=== PATIENT | male | born 1970 | race Caucasian/White ===

== ENCOUNTER 2022-04-11 11:14 | Outpatient (CLI) | payer OTHER, SELFPAY ==
[2022-04-11 21:58] LABS: Alanine Aminotransferase* 261 U/L (4-50); Albumin* 5.5 g/dL (3.3-5.0); Alkaline Phosphatase* 77 U/L (40-150); Aspartate Amino Transferase* 157 U/L (12-35); Bilirubin Direct* 0.5 mg/dL (0.0-0.5); Bilirubin Total* 1.2 mg/dL (0.1-1.5); Cholesterol* 368 mg/dL (90-199); HDL Cholesterol* 48 mg/dL (>=40); LDL Cholesterol Calculated 288 mg/dL (<100); Total Protein* 9.2 g/dL (6.0-8.3); Triglycerides* 158 mg/dL (40-149)
[2022-04-11 22:17] LABS: PSA Screen* 0.66 ng/mL (0.10-4.00)
== END 2022-04-11 11:15 | disposition home or self-care (01) ==
PROVIDERS: PCP Family Medicine; Visit Provider Family Medicine
DX: Z00.00 Encounter for general adult medical examination without abnormal findings (principal); E78.5 Hyperlipidemia, unspecified; I10 Essential (primary) hypertension; Z12.5 Encounter for screening for malignant neoplasm of prostate
CPT/HCPCS: 80061; 80076; 84153

== ENCOUNTER 2022-04-29 09:36 | Outpatient (CLI) | payer OTHER, SELFPAY ==
--- NOTE | 2022-04-29 09:45 | CRLHL7_ITS ---
For Patients: As a result of the Century Cures Act, medical imaging exams and procedure reports are released immediately into your electronic medical record. You may view this report before your referring provider. If you have questions, please contact your health care provider. INDICATION: fatty liver COMPARISON: none TECHNIQUE: Real time elizabeth scale imaging and color Doppler analysis was performed of the right upper quadrant. FINDINGS: The patient`s liver is of normal size and has diffusely coarsened and increased echogenicity. Focal area of sparing is present adjacent to the gallbladder fossa measuring 1 cm. There is a normal appearance of the hepatic IVC and proximal abdominal aorta. There is no evidence of ascites. The gallbladder is of normal size and there is no evidence of intraluminal stones or sludge. The gallbladder wall measures 2 mm in thickness. The common bile duct is of normal size and measures 5 mm in diameter at the level of the le hepatis. The pancreas appears normal. There is no evidence of a stone or hydronephrosis within the right kidney. The right kidney measures 11.9 cm in length. IMPRESSION: Moderately severe diffuse hepatic steatosis. Dictated by Darrell Hamilton MD @ 04/29/2022 11:29:52 AM (Electronically Signed)
== END 2022-04-29 09:37 | disposition home or self-care (01) ==
LOC: US 09:37
PROVIDERS: PCP Family Medicine; Visit Provider Family Medicine
DX: K76.0 Fatty (change of) liver, not elsewhere classified (principal)
CPT/HCPCS: 76705

== ENCOUNTER 2022-05-22 13:00 | Outpatient (CLI) | payer OTHER, SELFPAY ==
[2022-05-22 22:02] LABS: Albumin* 5.3 g/dL (3.3-5.0)
[2022-05-22 22:04] LABS: Aspartate Amino Transferase* 132 U/L (12-35); Bilirubin Direct* 0.2 mg/dL (0.0-0.5); Total Protein* 8.5 g/dL (6.0-8.3)
[2022-05-22 22:05] LABS: Alanine Aminotransferase* 226 U/L (4-50); Alkaline Phosphatase* 70 U/L (40-150)
== END 2022-05-22 13:01 | disposition home or self-care (01) ==
LOC: LKVREF 13:00
PROVIDERS: PCP Family Medicine; Visit Provider Family Medicine
DX: R79.89 Other specified abnormal findings of blood chemistry (principal); E78.5 Hyperlipidemia, unspecified; I10 Essential (primary) hypertension
CPT/HCPCS: 80076

== ENCOUNTER 2022-08-08 11:24 | Outpatient (CLI) | payer OTHER, SELFPAY ==
[2022-08-08 22:03] LABS: Albumin* 4.9 g/dL (3.3-5.0)
[2022-08-08 22:06] LABS: Alanine Aminotransferase* 269 U/L (4-50); Alkaline Phosphatase* 72 U/L (40-150); Aspartate Amino Transferase* 172 U/L (12-35); Bilirubin Direct* 0.2 mg/dL (0.0-0.5); Total Protein* 8.4 g/dL (6.0-8.3)
== END 2022-08-08 11:25 | disposition home or self-care (01) ==
LOC: LKVREF 11:26
PROVIDERS: PCP Family Medicine; Visit Provider Family Medicine
DX: I10 Essential (primary) hypertension (principal); R79.89 Other specified abnormal findings of blood chemistry; E78.5 Hyperlipidemia, unspecified; F10.10 Alcohol abuse, uncomplicated
CPT/HCPCS: 80076

== ENCOUNTER 2022-09-07 12:34 | Outpatient (CLI) | payer OTHER, SELFPAY | END 2022-09-07 12:35 | disposition home or self-care (01) | LOC: LKVREF 12:35 | PROVIDERS: PCP Family Medicine; Visit Provider Physician Assistant | DX: L72.3 Sebaceous cyst (principal) | CPT/HCPCS: 87070 ==

== ENCOUNTER 2023-04-02 09:52 | Outpatient (CLI) | payer OTHER, SELFPAY | END 2023-04-02 09:53 | disposition home or self-care (01) | LOC: NFLDREF 13:05 | PROVIDERS: PCP Family Medicine; Referring Provider Family Medicine; Visit Provider Family Medicine | DX: E78.5 Hyperlipidemia, unspecified (principal); I10 Essential (primary) hypertension; F10.10 Alcohol abuse, uncomplicated; R79.89 Other specified abnormal findings of blood chemistry; Z12.5 Encounter for screening for malignant neoplasm of prostate | CPT/HCPCS: 80061; 82043; 82570 ==

== ENCOUNTER 2023-04-23 11:18 | Outpatient (CLI) | payer OTHER, SELFPAY | END 2023-04-23 11:19 | disposition home or self-care (01) | LOC: LKVREF 11:18 | PROVIDERS: PCP Family Medicine; Visit Provider Family Medicine | DX: R79.89 Other specified abnormal findings of blood chemistry (principal); E78.5 Hyperlipidemia, unspecified; I10 Essential (primary) hypertension | CPT/HCPCS: 80076 ==

== ENCOUNTER 2023-06-04 08:29 | Outpatient (CLI) | payer OTHER, SELFPAY | END 2023-06-04 08:30 | disposition home or self-care (01) | LOC: NFLDREF 06-08 05:48 | PROVIDERS: PCP Family Medicine; Referring Provider Family Medicine; Visit Provider Family Medicine | DX: E78.5 Hyperlipidemia, unspecified (principal); I10 Essential (primary) hypertension; R79.89 Other specified abnormal findings of blood chemistry | CPT/HCPCS: 80053; 80061 ==

== ENCOUNTER 2023-09-10 14:49 | Outpatient (CLI) | payer OTHER, SELFPAY | END 2023-09-10 14:50 | disposition home or self-care (01) | PROVIDERS: PCP Family Medicine; Visit Provider Family Medicine | DX: Z00.00 Encounter for general adult medical examination without abnormal findings (principal); E78.5 Hyperlipidemia, unspecified; R79.89 Other specified abnormal findings of blood chemistry; I10 Essential (primary) hypertension; E78.00 Pure hypercholesterolemia, unspecified; D64.9 Anemia, unspecified; F10.10 Alcohol abuse, uncomplicated | CPT/HCPCS: 80053; 80061; 80076; G0103 ==